=== PATIENT | female | born 1985 ===

== ENCOUNTER 2024-02-04 17:23 | Emergency (ER) | payer OTHER ==
[~2024-02-04] VITALS: Ht 157.5 cm; Wt 56.7 kg
[2024-02-04 17:56] LABS: BASOPHILS # (AUTO) 0.02 K/uL (0.00-0.20); BASOPHILS % (AUTO) 0.2 % (0.0-5.0); HEMATOCRIT 39.9 % (36-48); IMMATURE GRANULOCYTE ABSOLUTE 0.03 K/uL (0-1); LYMPHOCYTES # (AUTO) 1.8 K/uL (1.0-4.8); LYMPHOCYTES % (AUTO) 16.5 % (21.0-51.0); MEAN CORPUSCULAR HEMOGLOBIN 34.1 pg (27.0-33.0); MEAN CORPUSCULAR HGB CONC 35.8 g/dL (32.0-36.0); MEAN CORPUSCULAR VOLUME 95.2 fL (79-99); MONOCYTES # (AUTO) 0.8 K/uL (0.1-1.0); MONOCYTES % (AUTO) 7.2 % (3.0-13.0); NEUTROPHILS # (AUTO) 8.1 K/uL (1.8-7.7); NEUTROPHILS % (AUTO) 75.8 % (40.0-77.0); PLATELET COUNT (AUTO) 286 K/uL (130-400); RED BLOOD CELL COUNT(AUTO) 4.19 MIL/uL (4.00-5.50); RED CELL DISTRIBUTION WIDTH 12.1 % (11.0-15.5); WHITE BLOOD COUNT (AUTO) 10.7 K/uL (4.8-10.8)
[2024-02-04 17:57] LABS: APPEARANCE,URINE CLOUDY (CLEAR); BILIRUBIN,URINE NEGATIVE (NEGATIVE); COLOR,URINE YELLOW (YELLOW); GLUCOSE, URINE (UA) NEGATIVE (NEGATIVE); KETONES,URINE 40 mg/dL (NEGATIVE); LEUKOCYTE ESTERASE ,URINE NEGATIVE Leu/uL (NEGATIVE); NITRATE,URINE NEGATIVE (NEGATIVE); OCCULT BLOOD,URINE MODERATE (NEGATIVE); PROTEIN,URINE 70 mg/dL (NEGATIVE)
[2024-02-04] MEDS: ONDANSETRON 4MG INJ IVP ONE (17:59)
[2024-02-04] MEDS: KETOROLAC 30MG VIAL (30MG/ML) IVP ONE (17:59)
[2024-02-04] MEDS: 0.9%NACL 1000ML 1,000 ML IV ONE (17:59)
[2024-02-04] MEDS: MORPHINE 4 MG SYG IVP ONE (18:00)
[2024-02-04 18:01] LABS: ADD UA MICROSCOPIC YES
[2024-02-04 18:02] LABS: MUCUS,URINE MANY LPF (None Seen); SQUAMOUS EPITHELIAL CELL,UR MOD /HPF (0-2)
[2024-02-04 18:09] LABS: ALBUMIN 4.9 g/dL (3.5-5.0); BILIRUBIN,TOTAL 1.2 mg/dL (0.2-1.0); POTASSIUM 3.8 mmol/L (3.5-5.1); TOTAL PROTEIN, SERUM 9.3 g/dL (6.0-8.3)
[2024-02-04] MEDS ORDERED: IOHEXOL-350 75 ML VIAL IV ONE (18:36)
[2024-02-04] MEDS ORDERED: ONDA-243 PO (19:51)
[2024-02-04 20:10] VITALS: BP 105/65; PULSE 75; RESP 18; O2SAT 100
== END 2024-02-04 20:13 | disposition home or self-care (01) ==
LOC: EDH 17:23
DX: R10.30 Lower abdominal pain, unspecified (principal); B34.9 Viral infection, unspecified; R11.2 Nausea with vomiting, unspecified
CPT/HCPCS: 99285; 74177; 96374; 96375; 71045; 96361; 80053; 83690; 85025; 81001; 81025; 36415; J2405; J2270; J1885; Q9967